=== PATIENT | female | born 1995 | race African-American/Black ===

== ENCOUNTER 2016-06-05 06:36 | Emergency (ER) | payer MEDICAID ==
[2016-06-05] MEDS ORDERED: IBUPROFEN 600 MG TABLET PO ONE (07:13)
[2016-06-05] MEDS ORDERED: DIPHENHYDRAMINE HCL 25 MG CAPSULE PO ONE (07:13)
[2016-06-05] MEDS ORDERED: PROCHLORPERAZINE MALEATE 10 MG TABLET PO ONE (07:13)
--- NOTE | 2016-06-05 07:15 | ER Document Report ---
ED Headache - General Chief Complaint: Head Injury Stated Complaint: FALL,HEADACHE Time seen by provider: 07:10 Mode of Arrival: Ambulatory Information source: Patient Notes: 21-year-old female presents to ED with 3 days of headache with dizziness since she hit the side of her head when she fell while "messing around" with her boyfriend. She states that she had a headache and dizziness for the past 3 days. He states she took naproxen the first day and Excedrin Migraine the second day and her head is still sore. TRAVEL OUTSIDE OF THE [place] IN LAST 30 DAYS: No - HPI Patient complains to provider of: Headache Onset: Other - 3 days Onset was: Other - She fell and hit her head Timing: Better Quality of pain: Other - Sore Severity: Moderate Pain Level: 3 Associated symptoms: Lightheaded, Photophobia Exacerbated by: Noise Similar symptoms previously: Yes Recently seen / treated by doctor: No - Related Data Allergies/Adverse Reactions: No Known Allergies Allergy (Verified 06/05/16 06:59) Past Medical History - General Information source: Patient - Social History Smoking Status: Never Smoker Cigarette use (# per day): No Chew tobacco use (# tins/day): No Smoking Education Provided: No Frequency of alcohol use: None Drug Abuse: None Lives with: Family Family History: Reviewed & Not Pertinent Patient has suicidal ideation: No Patient has homicidal ideation: No - Past Medical History Cardiac Medical History: Reports: None Pulmonary Medical History: Reports: Hx Asthma EENT Medical History: Reports: None Endocrine Medical History: Reports: None Renal/ Medical History: Reports: None Malignancy Medical History: Reports: None GI Medical History: Reports: None Musculoskeltal Medical History: Reports None Skin Medical History: Reports None Psychiatric Medical History: Reports: Hx Attention Deficit Hyperactivity Disorder Infectious Medical History: Reports: None Surgical Hx: Negative Past Surgical History: Reports: None - Immunizations Immunizations up to date: Yes Hx Diphtheria, Pertussis, Tetanus Vaccination: Yes Review of Systems - Review of Systems Constitutional: No symptoms reported EENT: No symptoms reported Cardiovascular: Dizziness Respiratory: No symptoms reported Gastrointestinal: No symptoms reported Genitourinary: No symptoms reported Female Genitourinary: No symptoms reported Musculoskeletal: No symptoms reported Skin: No symptoms reported Hematologic/Lymphatic: No symptoms reported Neurological/Psychological: Headaches -: Yes All other systems reviewed and negative Physical Exam - Vital signs Vitals: Temp Pulse Resp BP Pulse Ox 98.2 F 94 17 106/50 L 99 06/05/16 06:58 06/05/16 06:58 06/05/16 06:58 06/05/16 06:58 06/05/16 06:58 Interpretation: Normal - General General appearance: Appears well, Alert - HEENT Head: Normocephalic, Atraumatic Eyes: Normal Pupils: PERRL Ears: Normal External canal: Normal Tympanic membrane: Normal Nasal: Normal Mouth/Lips: Normal Mucous membranes: Normal Pharynx: Normal Neck: Normal - Respiratory Respiratory status: No respiratory distress Chest status: Nontender Breath sounds: Normal Chest palpation: Normal - Cardiovascular Rhythm: Regular Heart sounds: Normal auscultation Murmur: No - Abdominal Inspection: Normal Distension: No distension Bowel sounds: Normal Tenderness: Nontender Organomegaly: No organomegaly - Back Back: Normal, Nontender - Extremities General upper extremity: Normal inspection, Nontender, Normal color, Normal ROM , Normal temperature General lower extremity: Normal inspection, Nontender, Normal color, Normal ROM , Normal temperature, Normal weight bearing. No: Jose's sign - Neurological Neuro grossly intact: Yes Cognition: Normal Orientation: AAOx4 [place] Coma Scale Eye Opening: Spontaneous Adrien Coma Scale Verbal: Oriented Adrien Coma Scale Motor: Obeys Commands Adrien Coma Scale Total: 15 Speech: Normal Cranial nerves: Normal Cerebellar coordination: Normal Motor strength normal: LUE, RUE, LLE, RLE Additional motor exam normals: Equal facility manager Babinski reflex: Normal (flexor plantar) Sensory: Normal - Psychological Associated symptoms: Normal affect, Normal mood - Skin Skin Temperature: Warm Skin Moisture: Dry Skin Color: Normal Course - Vital Signs Vital signs: Temp Pulse Resp BP Pulse Ox 98.2 F 94 17 106/50 L 99 06/05/16 06:58 06/05/16 06:58 06/05/16 06:58 06/05/16 06:58 06/05/16 06:58 Discharge - Discharge Clinical Impression: Headache Qualifiers: Headache type: unspecified Headache chronicity pattern: acute headache Intractability: not intractable Qualified Code(s): R51 - Headache Condition: Stable Disposition: HOME, SELF-CARE Additional Instructions: HEADACHE: The physician does not feel that the headache you are experiencing has a serious underlying cause. Most headaches are due to emotional stress, with resultant muscle tension (tension headache). Occasionally, headaches are secondary to changes in the blood vessels of the scalp (vascular headache and migraine headache). Sometimes, a headache is the first symptom of another developing illness, such as a viral infection. You have no evidence of stroke, bleeding, meningitis, or other serious cause of your headache. The treatment of headaches varies with the severity and cause of the pain. Not all headaches need pain shots. In fact, there is evidence that using narcotics for headaches may make them worse in the long run. The physician will determine the therapy that's in your best interest. If you develop a fever, if the headache is different from any you've previously experienced, or if the headache progressively worsens, then call your physician at once or go to the emergency room. USE OF DIPHENHYDRAMINE: Diphenhydramine (Benadryl) is an antihistamine and has been recommended to help treat your headache and to prevent side effects of other medications used to treat headaches. The medication can be repeated four times daily. Age Elixir (12.5 mg/tsp) 25 mg pill adult 1-2 tabs Antihistamines may cause drowsiness, especially with the first dose. Do not operate machinery or drive while under the effects of the medication. Do not combine the medication with alcohol, or with any other medication without talking to your doctor. ANTINAUSEA MEDICATION: You have been given a medication to suppress nausea and vomiting. This type of medication can be given as a shot, pill, or suppository. It will usually last for many hours. Pills and shots usually last six to eight hours, suppositories last about 12 hours. For the typical illness, only one or two doses of the medication may be necessary. Mild lightheadedness may occur. This type of medicine can cause drowsiness. Do not drive or operate dangerous machinery while under its influence. Do not mix with alcohol. See your doctor at once if you have muscle spasms or tightness, or uncontrollable motions (particularly of the neck, mouth, or jaw). Persistent vomiting or severe lightheadedness should also be evaluated by the physician. COMPAZINE FOR HEADACHE: You have received therapy for headaches, using Compazine. This treatment is dramatically successful in relieving the headache in about 50 percent of cases. When it works, it provides a rapid method of eliminating the headache without resorting to narcotics (and the problems associated with them). Most patients still feel fully alert after the Compazine, but others may be slightly drowsy. It's best not to drive or work with machinery for six to eight hours. Do not take alcohol or other medication unless you discuss it with the doctor. If you develop tightness and spasms in your muscles, especially the neck and tongue, you should return. This is a side effect which can be treated. Ibuprofen Ibuprofen is an excellent, safe drug for pain control. In addition, it has potent antiinflammatory effects which are beneficial, especially in the treatment of injuries, arthritis, or tendonitis. It's best to take ibuprofen with food. Persons with ulcer disease or allergy to aspirin should notify their physician of this before taking ibuprofen. Take the medication exactly as prescribed. Don't take additional doses unless instructed to do so by your doctor. If you develop wheezing, shortness of breath, hives, faintness, stomach pain, vomiting, or dark black stools, return for re-evaluation at once. FOLLOW-UP CARE: If you have been referred to a physician for follow-up care, call the physician s office for an appointment as you were instructed or within the next two days. If you experience worsening or a significant change in your symptoms, notify the physician immediately or return to the Emergency Department at any time for re-evaluation. Prescriptions: Prochlorperazine Maleate [Compazine 10 mg Tablet] 10 mg PO ASDIR PRN #10 tablet PRN Reason: Forms: Return to Work
[2016-06-05 07:45] VITALS: BP 110/55
== END 2016-06-05 07:39 | disposition home or self-care (01) ==
LOC: ER 06:36
DX: R51 Headache (principal); R42 Dizziness and giddiness; H53.149 Visual discomfort, unspecified; W19.XXXA Unspecified fall, initial encounter; J45.909 Unspecified asthma, uncomplicated
CPT/HCPCS: 99283; J3490 ×2; S0183

== ENCOUNTER 2018-08-08 19:46 | Emergency (ER) | payer MEDICAID ==
[2018-08-08 19:56] VITALS: BP 100/56
[2018-08-08] MEDS ORDERED: METOCLOPRAMIDE HCL INJ/PF 10 MG/2 ML SDV IV ONE (20:19)
[2018-08-08] MEDS ORDERED: NORMAL SALINE 1000 ML 1,000 ML IV ONE (20:20)
--- NOTE | 2018-08-08 20:21 | ER Document Report ---
ED Medical Screen (RME) - General Chief Complaint: Nausea/Vomiting Stated Complaint: VOMITING Time Seen by Provider: 08/08/18 20:18 Primary Care Provider: ROBB RAMÍREZ MD [Primary Care Provider] - Follow up as needed Mode of Arrival: Ambulatory Information source: Patient Notes: Patient is an otherwise healthy 23-year-old female who presents to the emergency department with a chief complaint of nausea with vomiting. Patient reports symptoms started this morning. Patient denies any diarrhea. Patient reports her significant other woke up with similar symptoms. Patient reports she is approximately 19 weeks . Patient denies any vaginal bleeding or abnormal discharge. Patient does report mild low abdominal cramping. Exam: Patient alert, oriented with no acute distress noted. Abdomen gravid, soft, nontender. I have greeted and performed a rapid initial assessment of this patient. A comprehensive ED assessment and evaluation of the patient, analysis of test results and completion of the medical decision making process will be conducted by additional ED providers. Dictation of this chart was performed using voice recognition software; therefore, there may be some unintended grammatical errors. TRAVEL OUTSIDE OF THE [place] IN LAST 30 DAYS: No - Related Data Allergies/Adverse Reactions: No Known Allergies Allergy (Verified 06/05/16 06:59) Past Medical History Pulmonary Medical History: Reports: Hx Asthma Renal/ Medical History: Denies: Hx Peritoneal Dialysis Psychiatric Medical History: Reports: Hx Attention Deficit Hyperactivity Disorder - Immunizations Immunizations up to date: Yes Hx Diphtheria, Pertussis, Tetanus Vaccination: Yes Physical Exam - Vital signs Vitals: Temp Pulse Resp BP Pulse Ox 98.6 F 103 H 17 100/56 L 95 08/08/18 19:53 08/08/18 19:53 08/08/18 19:53 08/08/18 19:53 08/08/18 19:53 Course - Vital Signs Vital signs: Temp Pulse Resp BP Pulse Ox 98.6 F 103 H 17 100/56 L 95 08/08/18 19:53 08/08/18 19:53 08/08/18 19:53 08/08/18 19:53 08/08/18 19:53 Doctor's Discharge - Discharge Referrals: ROBB RAMÍREZ MD [Primary Care Provider] - Follow up as needed
[2018-08-08 21:14] LABS: ABSOLUTE MONOCYTES (AUTO) 0.3 10^3/uL (0.1-1.4); ABSOLUTE NEUT (AUTO) 12.9 10^3/uL (1.7-8.2); BASOPHILS % (AUTO) 0.2 % (0-2); HEMATOCRIT 38.9 % (36.0-47.0); HEMOGLOBIN 13.7 g/dL (12.0-15.5); LYMPHOCYTES % (AUTO) 7.2 % (13-45); MEAN CORPUSCULAR HEMOGLOBIN 31.6 pg (27.0-33.4); MEAN CORPUSCULAR HGB CONC 35.3 g/dL (32.0-36.0); MEAN CORPUSCULAR VOLUME 90 fl (80-97); PLATELET COUNT 257 10^3/uL (150-450); RED BLOOD COUNT 4.34 10^6/uL (3.72-5.28); RED CELL DISTRIBUTION WIDTH 13.1 % (11.5-14.0); SEGMENTED NEUTROPHILS % (AUTO) 90.6 % (42-78); TOTAL CELLS COUNTED % (AUTO) 100 %; WHITE BLOOD COUNT 14.2 10^3/uL (4.0-10.5)
[2018-08-08 21:25] LABS: APPEARANCE,URINE CLEAR; BILIRUBIN,URINE NEGATIVE (NEGATIVE); COLOR,URINE YELLOW; GLUCOSE, URINE NEGATIVE (NEGATIVE); KETONES,URINE 80 mg/dL (NEGATIVE); LEUKOCYTE ESTERASE,URINE NEGATIVE (NEGATIVE); NITRITE,URINE NEGATIVE (NEGATIVE); PROTEIN,URINE NEGATIVE (NEGATIVE); URINE SPECIFIC GRAVITY 1.021
[2018-08-08 21:28] LABS: ALANINE AMINOTRANSFERASE 21 U/L (9-52); ALKALINE PHOSPHATASE 105 U/L (38-126); ANION GAP 11 (5-19); ASPARTATE AMINO TRANSFERASE 24 U/L (14-36); BILIRUBIN,DIRECT 0.2 mg/dL (0.0-0.4); BILIRUBIN,TOTAL 0.8 mg/dL (0.2-1.3); BLOOD UREA NITROGEN 7 mg/dL (7-20); CALCIUM 9.6 mg/dL (8.4-10.2); CARBON DIOXIDE 20 mmol/L (22-30); CHLORIDE 102 mmol/L (98-107); GLUCOSE 94 mg/dL (75-110); POTASSIUM 4.1 mmol/L (3.6-5.0); SODIUM 133.3 mmol/L (137-145); TOTAL PROTEIN 7.3 g/dL (6.3-8.2)
== END 2018-08-08 22:10 | disposition left against medical advice (07) ==
LOC: ER 19:46
DX: O21.9 Vomiting of pregnancy, unspecified (principal); O99.519 Diseases of the respiratory system complicating pregnancy, unspecified trimester; J45.909 Unspecified asthma, uncomplicated; Z3A.00 Weeks of gestation of pregnancy not specified; O26.899 Other specified pregnancy related conditions, unspecified trimester; R10.30 Lower abdominal pain, unspecified; Z53.20 Procedure and treatment not carried out because of patient's decision for unspecified reasons
CPT/HCPCS: 99281; 96361; 96374; 36415; 85025; 80053; 81001; J2765; J7030

== ENCOUNTER 2019-01-08 03:54 | Inpatient (IN) | payer MEDICAID ==
[2019-01-08] MEDS ORDERED: OXYTOCIN 10 UNIT/ML VIAL ONE ×2 (04:21→07:31)
[2019-01-08] MEDS ORDERED: LIDOCAINE 1% INJ-PF (10 MG/ML) 30 ML SDV ONE ×2 (04:21→07:31)
[2019-01-08] MEDS ORDERED: MISOPROSTOL 0.2 MG TABLET ONE ×2 (04:21→07:31)
[2019-01-08] MEDS ORDERED: OXYTOCIN/NORMAL SALINE 20 UNIT/1,000 ML RTUINJ ONE ×2 (04:22→07:31)
[2019-01-08 04:32] LABS: APPEARANCE,URINE CLEAR; BILIRUBIN,URINE NEGATIVE (NEGATIVE); COLOR,URINE YELLOW; GLUCOSE, URINE NEGATIVE (NEGATIVE); KETONES,URINE NEGATIVE (NEGATIVE); LEUKOCYTE ESTERASE,URINE NEGATIVE (NEGATIVE); NITRITE,URINE NEGATIVE (NEGATIVE); PROTEIN,URINE NEGATIVE (NEGATIVE); URINE SPECIFIC GRAVITY 1.006; UROBILINOGEN,URINE NEGATIVE mg/dL (<2.0)
[2019-01-08 04:49] LABS: URINE AMPHETAMINES SCREEN NEGATIVE; URINE BARBITURATES SCREEN NEGATIVE; URINE BENZODIAZEPINES SCREEN NEGATIVE; URINE COCAINE SCREEN NEGATIVE; URINE MARIJUANA (THC) SCREEN NEGATIVE; URINE METHADONE SCREEN NEGATIVE; URINE PHENCYCLIDINE SCREEN NEGATIVE
[2019-01-08] MEDS ORDERED: RINGERS SOLUTION,LACTATED 1,000 ML IV PRN (07:16)
[2019-01-08 07:45] LABS: ABSOLUTE EOSINOPHILS # (AUTO) 0.1 10^3/uL (0.0-0.6); ABSOLUTE LYMPHOCYTES (AUTO) 2.9 10^3/uL (0.5-4.7); ABSOLUTE MONOCYTES (AUTO) 0.7 10^3/uL (0.1-1.4); ABSOLUTE NEUT (AUTO) 8.6 10^3/uL (1.7-8.2); BASOPHILS % (AUTO) 0.3 % (0-2); EOSINOPHILS % (AUTO) 0.7 % (0-6); HEMATOCRIT 33.8 % (36.0-47.0); LYMPHOCYTES % (AUTO) 23.5 % (13-45); MEAN CORPUSCULAR HEMOGLOBIN 26.6 pg (27.0-33.4); MEAN CORPUSCULAR HGB CONC 32.6 g/dL (32.0-36.0); MEAN CORPUSCULAR VOLUME 82 fl (80-97); MONOCYTES % (AUTO) 5.7 % (3-13); PLATELET COUNT 335 10^3/uL (150-450); RED BLOOD COUNT 4.14 10^6/uL (3.72-5.28); RED CELL DISTRIBUTION WIDTH 15.3 % (11.5-14.0); SEGMENTED NEUTROPHILS % (AUTO) 69.8 % (42-78); TOTAL CELLS COUNTED % (AUTO) 100 %; WHITE BLOOD COUNT 12.2 10^3/uL (4.0-10.5)
--- NOTE | 2019-01-08 07:47 | Admission Physical ---
Datetime Report Generated by CPN: 01/08/2019 07:47 CURRENT ADMISSION Chief Complaint: Uterine Contractions Indication for Induction: Not Applicable Admit Impression : Active Labor; Ruptured Membranes Admit Plan: Admit to Unit ALLERGIES Medication Allergies: No Medication Allergies: No Known Allergies (06/05/2016) Latex: No Latex Allergies OBSTETRICAL HISTORY EDC: 01/05/2019 00:00 : 2 Para: 1 Livin Gestational Diabetes: No Rh Sensitization: No Incompetent Cervix: No EDY: No Infertility: No ART Treatment: No Uterine Anomaly: No IUGR: No Hx Previous C/S: No Macrosomia: No Hx Loss/Stillborn: No PIH: No Hx : No Placenta Previa/Abruption: No Depression/PP Depression: No PTL/PROM: No Post Hemorrhage: No Current Procedures: Ultrasound SEE RECORDS Alcohol: No Marijuana : No Cocaine: No Other Illicit Drugs: No Cigarettes: Never Smoker. 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 Heart Disease: No Hosp/Surgery: No Autoimmune Disorder: No Anesthetic Complications: No Kidney Disease: No Abnormal Pap Smear: No Neuro/Epilepsy: No Psychiatric Disorders: No Other Medical Diseases: No Hepatitis/Liver Disease: No Significant Family History: No Varicosities/Phlebitis: No Trauma/Violence : No Thyroid Dysfunction: No INFECTIOUS HISTORY Gonorrhea: No Genital Herpes: No Chlamydia: No Tuberculosis: No Syphilis: No Hepatitis: No HIV/AIDS Exposure: No Rash or Viral Illness: No HPV: No PHYSICAL EXAM General: Normal HEENT: Normal Neurologic: Normal Thyroid: Normal Heart: Normal Lungs: Normal Breast: Deferred Back: Normal Abdomen: Normal Genitourinary Exam: Normal Extremities: Normal DTRs: Normal Pelvic Type: Adequate Vital Signs: Reviewed VAGINAL EXAM Dilatation: 7 Effacement: 90 Station: -1 MEMBRANES Pooling: Positive Membranes: Ruptured FETUS A EGA: 40.3 Monitoring: External US FHR- Baseline: 130 Variability: Absent - Undetectable FHR Category: Category I Presentation: Vertex Admit Comment: Admit for labor PLANS FOR LABOR AND DELIVERY Labor and Delivery: None Pain Management: Medications; Epidural Feeding Preference: Breast INFORMED CONSENT Signature: with User ID: [email or web address]
[2019-01-08] MEDS ORDERED: ZOLPIDEM TARTRATE 5 MG TABLET PO PRN (08:56)
[2019-01-08] MEDS ORDERED: DIBUCAINE 1% OINTMENT 56 GM TP PRN (08:56)
[2019-01-08] MEDS ORDERED: OXYTOCIN/NORMAL SALINE 20 UNIT/1,000 ML RTUINJ IV PRN (08:56)
[2019-01-08] MEDS ORDERED: BENZOCAINE/MENTHOL AEROSOL SPRAY 56 ML TOP PRN (08:56)
[2019-01-08] MEDS ORDERED: ACETAMINOPHEN WITH CODEINE #3 TABLET PO PRN (08:56)
[2019-01-08] MEDS ORDERED: MEASLES,MUMPS&RUBELLA VACC/PF 0.5 ML VIAL SUBCUT PRN (08:56)
[2019-01-08] MEDS ORDERED: DIPH/PERTUSS(ACELL)/TETANUS VAC/PF 0.5 ML SYR (>=10YO) IM PRN (08:56)
[2019-01-08] MEDS ORDERED: ACETAMINOPHEN WITH CODEINE #3 TABLET ONE (09:01)
[2019-01-08] MEDS ORDERED: IBUPROFEN 800 MG TABLET ONE (09:35)
[2019-01-08] MEDS ORDERED: AMPICILLIN SOD/SULBACTAM 3 GM VIAL ONE (10:38)
[2019-01-08] MEDS: DOCUSATE SODIUM 100 MG CAPSULE PO SCH ×2 (11:21→18:29)
[2019-01-08] MEDS: FERROUS SULFATE 325 MG TABLET PO SCH ×2 (11:21→18:29)
[2019-01-08] MEDS: SENNOSIDES/DOCUSATE 8.6-50 MG 1 EACH TABLET PO SCH (11:22)
[2019-01-08] MEDS: PRENATAL VITAMIN W DHA CAPSULE PO SCH (11:22)
[2019-01-08] MEDS: IBUPROFEN 800 MG TABLET PO SCH ×2 (16:00→21:19)
[2019-01-08] MEDS: ACETAMINOPHEN WITH CODEINE #3 TABLET PO PRN (16:02)
--- NOTE | 2019-01-08 16:49 | Delivery Summary ---
Del Sum A-C Datetime Report Generated by CPN: 01/08/2019 16:48 DELIVERY PERSONNEL DELIVERY PERSONNEL: [id number] Delivery Doctor:: Ninfa Pina MD Nurse Systems Engineering Manager Certified:: Tran Dickerson CNM Labor and Delivery Nurse:: Harpreet Ly RNsewer connector Nurse:: LESLIE Clay Nursery Nurse:: Chad Pena RN MATERNAL INFORMATION Delivery Anesthesia: None Medications After Delivery: Pitocin 10 Units IM; Cytotec 1000mcg Per Rectum/Vagina Meds After Delivery Comment: Cytotec 200 mcg po amd Cytotec 800 mcg given Delivery QBL: 200 Delivery QBL Comment: 200 Maternal Complications: Precipitous Labor (<3hrs) Provider Comments: Complete +4 upon entering room, pt screaming and pushing intermittently uncordinated. Pt directed to relax legs and push multiple times as she was fighting it. Delivery of head was progressing slowly, Dr. Pina in for suspected shoulder dystocia, pt head lowered to flat. Head delivered, then shoulders delivered after 1m 30sec with Martín, and suprapubic pressure. Infant to maternal abd, cord clamped immediately and cut per RN, handed off to Nursery team for NRP. Placenta delivered spontaneously via [place]. IV lost during delivery, Pitocin given IM, cytotec 200mcg PO and 300mcg rectal. Bleeding stabilized, QBL 200. 5.8. Mother and stable. LABOR SUMMARY EDC: 01/05/2019 00:00 No. Babies in Womb: 1 Attempted: No Labor Anesthesia: None LABOR INFORMATION Reason for Induction: Not Applicable Onset of Labor: 01/08/2019 06:36 Complete Dilatation: 01/08/2019 07:55 Oxytocin: N/A Group B Beta Strep: NEG Antibiotics # of Doses: 0 Steroids Given: None Reason Steroids Not Administered: Not Applicable MEMBRANES Membranes Rupture Method: Spontaneous Rupture of Membranes: 01/08/2019 06:34 Length of Rupture (hr): 1.62 Amniotic Fluid Color: Clear Amniotic Fluid Amount: Small Amniotic Fluid Odor: Normal STAGES OF LABOR Stage 1 hr: 1 Stage 1 min: 19 Stage 2 hr: 0 Stage 2 min: 16 Stage 3 hr: 0 Stage 3 min: 4 Total Time in Labor hr: 1 Total Time in Labor min: 39 VAGINAL DELIVERY Episiotomy: None Laceration #1: Perineal Laceration Extension #1: First Degree Laceration Repair: Yes Laceration Repair Note: 1 interrupted stitch with 3.0 chromic suture Sponge Count Correct: N/A Sharps Count Correct: N/A CSECTION DELIVERY Primary Indication: N/A Secondary Indication: N/A CSection Incidence: N/A Labor: N/A Elective: N/A CSection Incision: N/A BABY A INFORMATION Delivery Date/Time: 01/08/2019 08:11 Method of Delivery: Vaginal Born in Route : No : N/A Forceps: N/A Vacuum Extraction: N/A (Annotations: Data stored by [facility] on behalf of user) Shoulder Dystocia : Yes SHOULDER DYSTOCIA BABY A Delivery of Head: 01/08/2019 08:10 Time Head to Delivery : 1.0 1st Intervention to Resolve: Gentle Attempt at Traction, Assisted by Maternal Expulsive Efforts 2nd Intervention to Resolve: McRobert's Maneuver 3rd Intervention to Resolve: Suprapubic Pressure Verify NO Fundal Pressure: No Fundal Pressure Applied Arm Under Symphisis at Del: Right PRESENTATION/POSITION BABY A Presentation: Cephalic Cephalic Presentation: Vertex Vertex Position: Right Occipital Anterior Breech Presentation: N/A PLACENTA INFORMATION BABY A Placenta Delivery Time : 01/08/2019 08:15 Placenta Method of Delivery: Spontaneous Placenta Status: Delivered SCORES BABY A Heart Rate 1 min: >100 bpm Resp Effort 1 min: Slow, Irregular Reflex Irritability 1 min: Grimace Muscle Tone 1 min: Some Flexion of Extremities Color 1 min: Blue/Pale SCORE 1 MIN: 5 Heart Rate 5 min: >100 bpm Resp Effort 5 min: Good Cry Reflex Irritability 5 min: Cough or Sneeze or Pulls Away Muscle Tone 5 min: Some Flexion of Extremities Color 5 min: Body [place], Extremities Blue (Annotations: Data stored by [facility] on behalf of user) SCORE 5 MIN: 8 INFORMATION BABY A Gestational Age at Delivery: 40.3 Gestational Status: Full Term- 39- 40.6 Weeks Infant Outcome : Liveborn Condition : Stable Infant Sex: Female IDENTIFICATION BABY A Verification Date/Time: 01/08/2019 08:45 ID Band Number: [id number] Mother's Name Verified: Yes Infant RN Verifying Infant: SCamp,RN Additional Verifying Personnel: TMartin,RN WEIGHT/LENGTH BABY A Infant Birthweight (gm): 4110 Infant Weight (lb): 9 Weight (oz): 1 Length (in): 21.00 Infant Length (cm): 53.34 CORD INFORMATION BABY A No. Cord Vessels: 3 Nuchal Cord : N/A Cord Blood Taken: Yes-For Eval (Mom's Blood Type - or O+) Suction: None ASSESSMENT BABY A Complications: None Physical Findings at Delivery: Other Physical Findings- Other: see nursery record for assessment Infant Respirations: Tachypnea Skin to Skin: No Oil Burner Installer/ALS Called : No Infant Care By: Wen Pena RN Transferred To: Nursery BABY B INFORMATION : N/A SIGNATURES Assignment: Ninfa Pina MD Signature: with User ID: [email or web address] : with User ID: [email or web address] : I was personally available for consultation and serving as supervising physician for the MLP.
[2019-01-08] MEDS ORDERED: AMPICILLIN SOD/SULBACTAM 3 GM VIAL IV SCH (18:00)
[2019-01-08] MEDS: AMPICILLIN SODIUM/SULBACTAM NA 3 GM in NORMAL SALINE 100 ML IV SCH ×2 (18:29→23:50)
[2019-01-09] MEDS: ACETAMINOPHEN WITH CODEINE #3 TABLET PO PRN (00:55)
[2019-01-09] MEDS: IBUPROFEN 800 MG TABLET PO SCH ×3 (06:33→21:32)
[2019-01-09] MEDS: AMPICILLIN SODIUM/SULBACTAM NA 3 GM in NORMAL SALINE 100 ML IV SCH (06:34)
[2019-01-09 08:04] LABS: HEMATOCRIT 33.4 % (36.0-47.0); HEMOGLOBIN 10.8 g/dL (12.0-15.5); MEAN CORPUSCULAR HEMOGLOBIN 26.2 pg (27.0-33.4); MEAN CORPUSCULAR HGB CONC 32.2 g/dL (32.0-36.0); MEAN CORPUSCULAR VOLUME 81 fl (80-97); PLATELET COUNT 305 10^3/uL (150-450); RED BLOOD COUNT 4.11 10^6/uL (3.72-5.28); RED CELL DISTRIBUTION WIDTH 15.7 % (11.5-14.0); WHITE BLOOD COUNT 13.9 10^3/uL (4.0-10.5)
--- NOTE | 2019-01-09 08:44 | PDOC PROGRESS REPORT ---
Subjective-OB Progress Note for:: 01/09/19 - PP Day #1, doing well, no complaints, O+, Rubella immune, Maternal Temp noted while in labor, s/p Ancef, , Physical Exam (OB) Vital Signs: Temp Pulse Resp BP Pulse Ox 97.6 F 65 18 96/48 L 99 01/09/19 00:54 01/08/19 20:53 01/08/19 20:53 01/08/19 20:53 01/08/19 20:53 Intake & Output 01/08/19 01/09/19 01/10/19 06:59 06:59 06:59 Intake Total 1650 Balance 1650 Weight 76.8 kg - General General Appearance: Appears well, Alert In distress: None - PIH/Pre-Eclampsia Headache: Absent Epigastric Pain: No Visual Changes: No - Lochia Lochia Amount: Small 10-25 ml Lochia Color: Rubra/Red - Abdomen Description: Soft, Round Hernia Present: No Fundal Description: Firm, Midline Fundal Height: u/u - u/2 - Respiratory Respiratory Status: No respiratory distress - Abdominal Inspection: Normal Distension: No distension - Genitourinary Genitourinary Note: voiding - Extremities Upper extremity: Normal inspection Lower extremities: Normal inspection - Neurological Cognition: Normal Orientation: AAOx4 - Psychological Associated symptoms: Normal affect, Normal mood - Skin Skin Temperature: Warm Skin Moisture: Dry Objective-Diagnostic Laboratory: 01/09/19 07:29 01/09/19 07:29 WBC 13.9 H RBC 4.11 Hgb 10.8 L Hct 33.4 L MCV 81 MCH 26.2 L MCHC 32.2 RDW 15.7 H Plt Count 305 Assessment and Plan(PN) - Assessment and Plan (1) Normal course Is this a current diagnosis for this admission?: Yes (2) fever, current hospitalization Is this a current diagnosis for this admission?: Yes (3) Shoulder dystocia, delivered Is this a current diagnosis for this admission?: Yes (4) Vaginal delivery Is this a current diagnosis for this admission?: Yes - Time Spent with Patient Time with patient: Less than 15 minutes Medications reviewed and adjusted accordingly: Yes - Disposition Anticipated Discharge: Home Within: within 24 hours
[2019-01-09] MEDS: FERROUS SULFATE 325 MG TABLET PO SCH ×2 (10:33→17:09)
[2019-01-09] MEDS: SENNOSIDES/DOCUSATE 8.6-50 MG 1 EACH TABLET PO SCH (10:33)
[2019-01-09] MEDS: PRENATAL VITAMIN W DHA CAPSULE PO SCH (10:33)
[2019-01-09] MEDS: DOCUSATE SODIUM 100 MG CAPSULE PO SCH ×2 (10:33→17:09)
[2019-01-10] MEDS: IBUPROFEN 800 MG TABLET PO SCH (05:06)
--- NOTE | 2019-01-10 09:53 | PDOC DISCHARGE SUMMARY ---
Final Diagnosis Discharge Date: 01/10/19 - PP Day #2, doing well, denies fever, chills, malaise, , O+, Rubella Immune - Final Diagnosis (1) Normal course Is this a current diagnosis for this admission?: Yes (2) fever, current hospitalization Is this a current diagnosis for this admission?: Yes (3) Shoulder dystocia, delivered Is this a current diagnosis for this admission?: Yes (4) Vaginal delivery Is this a current diagnosis for this admission?: Yes Discharge Data - Discharge Medication Prescriptions: Ibuprofen [Motrin 800 mg Tablet] 800 mg PO Q8 #60 tablet Home Medications: Vits96/Iron Fum/Folic [ Tablet] 1 each PO DAILY 08/08/18 Ibuprofen [Motrin 800 mg Tablet] 800 mg PO Q8 #60 tablet 01/10/19 Reason(s) for Admission: Onset of Labor Procedure(s) Note: Tx'd for fever during labor Intrapartum Procedure(s): Spontaneous Vaginal Delivery Complication(s): Laceration-Perineal Laceration-Degree: 1st - Diagnosis Test Laboratory: Temp Pulse Resp BP Pulse Ox 97.5 F 60 16 115/55 L 99 01/09/19 19:36 01/09/19 19:36 01/09/19 19:36 01/09/19 19:36 01/09/19 19:36 01/08/19 01/08/19 01/09/19 04:09 07:34 07:29 RBC 4.14 4.11 Hgb 11.0 L 10.8 L Hct 33.8 L 33.4 L Urine Opiates Screen NEGATIVE - Discharge information/Instructions Discharge Activity: Activity As Tolerated, No Lifting Over 10 Pounds, Pelvic Rest Discharge Diet: As Tolerated, Regular Disposition: HOME, SELF-CARE Follow up with: [facility] in: 4, Weeks
[2019-01-10] MEDS: PRENATAL VITAMIN W DHA CAPSULE PO SCH (11:24)
[2019-01-10] MEDS: DOCUSATE SODIUM 100 MG CAPSULE PO SCH (11:24)
[2019-01-10] MEDS: FERROUS SULFATE 325 MG TABLET PO SCH (11:24)
[2019-01-10] MEDS: SENNOSIDES/DOCUSATE 8.6-50 MG 1 EACH TABLET PO SCH (11:24)
[2019-01-10 12:16] VITALS: BP 110/41
== END 2019-01-10 15:05 | disposition home or self-care (01) | DRG 806 ==
LOC: LC 03:54 → LR 06:23 → 2S 11:50
PROVIDERS: ADMIT Student in an Organized Health Care Education/Training Program; ATTEND Student in an Organized Health Care Education/Training Program
PROC: 10E0XZZ Delivery of Products of Conception, External Approach (ICD-10-PCS; principal; 2019-01-08)
PROC: 0HQ9XZZ Repair Perineum Skin, External Approach (ICD-10-PCS; 2019-01-08)
DX: O62.3 Precipitate labor (principal); O86.4 Pyrexia of unknown origin following delivery; Z37.0 Single live birth; O32.2XX0 Maternal care for transverse and oblique lie, not applicable or unspecified; O70.0 First degree perineal laceration during delivery; Z3A.40 40 weeks gestation of pregnancy
CPT/HCPCS: 36415; 80307; 81005; 84112; 85025; 85027; 86592; 86850; 86900; 86901; 94760; J0295; J2590; J3490; J7050

== ENCOUNTER 2019-05-26 23:57 | Emergency (ER) | payer MEDICAID ==
--- NOTE | 2019-05-27 01:35 | ER Document Report ---
ED Cardiac - General Chief Complaint: Palpitations Stated Complaint: REPORTS RAPID HEART RATE Time Seen by Provider: 05/27/19 01:34 Primary Care Provider: ELVIS SANTANA MD [Primary Care Provider] - Follow up as needed TRAVEL OUTSIDE OF THE [place] IN LAST 30 DAYS: No - Related Data Allergies/Adverse Reactions: No Known Allergies Allergy (Verified 06/05/16 06:59) Past Medical History - Social History Smoking Status: Never Smoker Frequency of alcohol use: None Drug Abuse: None Family History: Reviewed & Not Pertinent Patient has suicidal ideation: No Patient has homicidal ideation: No Pulmonary Medical History: Reports: Hx Asthma Renal/ Medical History: Denies: Hx Peritoneal Dialysis Psychiatric Medical History: Reports: Hx Attention Deficit Hyperactivity Disorder - Immunizations Immunizations up to date: Yes Hx Diphtheria, Pertussis, Tetanus Vaccination: Yes Physical Exam - Vital signs Vitals: Temp Pulse Resp BP Pulse Ox 97.7 F 74 15 106/60 98 05/27/19 00:16 05/27/19 00:16 05/27/19 00:16 05/27/19 00:16 05/27/19 00:16 Course - Re-evaluation Re-evalutation: 05/27/19 03:54 Patient resting comfortably normal sinus rhythm rate of 72 no return of palpitations. Denies any chest pain. - Vital Signs Vital signs: Temp Pulse Resp BP Pulse Ox 97.7 F 74 15 106/60 100 05/27/19 00:16 05/27/19 00:16 05/27/19 01:00 05/27/19 00:16 05/27/19 01:00 05/27/19 04:22 Patient's urine is cloudy and shows evidence for urinary tract infection. When asked patient if she had symptoms of UTI she does mention that there is no urinary burning noted. I explained the patient that we will put her on antibiotic at the treat that condition. - Laboratory Result Diagrams: 05/27/19 02:09 05/27/19 02:09 Laboratory results interpreted by me: 05/27/19 05/27/19 02:00 02:09 WBC 11.2 H Urine Ketones TRACE H Urine Nitrite POSITIVE H Urine Urobilinogen 4.0 H Ur Leukocyte Esterase TRACE H - EKG Interpretation by Me EKG shows normal: Sinus rhythm Rate: Normal Rhythm: NSR Additional EKG results interpreted by me: 05/27/19 01:53 Twelve-lead EKG 07: 35. Interpretation normal sinus rhythm rate of 65 normal intervals no acute process normal axis no acute ST-T wave changes. Discharge - Discharge Clinical Impression: Generalized anxiety disorder with panic attacks, Heart palpitations, Urinary tract infection Condition: Stable Disposition: HOME, SELF-CARE Instructions: Urinary Tract Infection ([facility]), Trimethoprim-Sulfa ([facility]) Additional Instructions: Recommend follow-up with the [facility] to allow you to learn coping skills and counseling regarding anxiety which causes your palpitations and panic attacks. No medications prescribed at this time. The physician feels that some of your health problems are being caused by anxiety. Anxiety affects your health in many ways. Anxiety alone can cause palpitations, sweats, chest pains, abdominal pains, shortness of breath, and headaches. It contributes to ulcer disease, high blood pressure, irritable bowel syndrome, and has been shown to cause flare-ups of many other diseases. Anxiety is not a simple disorder to treat. If the anxiety is due to recent life stresses, you may simply need time to "work through" the changes. If the anxiety is due to an underlying unhappiness with yourself or due to psychiatric disturbance, professional help will be needed. Your physician can refer you for further help if needed. Anti-anxiety medication is occasionally given if the stress is acute or if you are having trouble sleeping. Chronic or frequent use of these medications is not a good idea because the body becomes reliant on it, preventing you from dealing with life's normal stresses. Prescriptions: Sulfamethoxazole/Trimethoprim [Septra-Ds 800-160 mg Tablet] 1 tab PO BID 10 Days #20 tablet Forms: Return to Work Referrals: ELVIS SANTANA MD [Primary Care Provider] - Follow up as needed
[2019-05-27 02:24] LABS: ABSOLUTE EOSINOPHILS # (AUTO) 0.1 10^3/uL (0.0-0.6); ABSOLUTE LYMPHOCYTES (AUTO) 4.3 10^3/uL (0.5-4.7); ABSOLUTE MONOCYTES (AUTO) 0.6 10^3/uL (0.1-1.4); ABSOLUTE NEUT (AUTO) 6.1 10^3/uL (1.7-8.2); BASOPHILS % (AUTO) 0.2 % (0-2); HEMATOCRIT 43.3 % (36.0-47.0); HEMOGLOBIN 14.7 g/dL (12.0-15.5); LYMPHOCYTES % (AUTO) 38.3 % (13-45); MEAN CORPUSCULAR HEMOGLOBIN 30.4 pg (27.0-33.4); MEAN CORPUSCULAR HGB CONC 33.8 g/dL (32.0-36.0); MEAN CORPUSCULAR VOLUME 90 fl (80-97); MONOCYTES % (AUTO) 5.7 % (3-13); PLATELET COUNT 247 10^3/uL (150-450); RED BLOOD COUNT 4.82 10^6/uL (3.72-5.28); RED CELL DISTRIBUTION WIDTH 12.7 % (11.5-14.0); SEGMENTED NEUTROPHILS % (AUTO) 54.8 % (42-78); TOTAL CELLS COUNTED % (AUTO) 100 %; WHITE BLOOD COUNT 11.2 10^3/uL (4.0-10.5)
[2019-05-27 02:41] LABS: ALBUMIN 4.5 g/dL (3.5-5.0); ALKALINE PHOSPHATASE 80 U/L (38-126); ANION GAP 9 (5-19); ASPARTATE AMINO TRANSFERASE 25 U/L (14-36); BILIRUBIN,TOTAL 0.5 mg/dL (0.2-1.3); BLOOD UREA NITROGEN 12 mg/dL (7-20); CALCIUM 9.4 mg/dL (8.4-10.2); CARBON DIOXIDE 25 mmol/L (22-30); CHLORIDE 107 mmol/L (98-107); GLUCOSE 82 mg/dL (75-110); POTASSIUM 3.7 mmol/L (3.6-5.0); TOTAL PROTEIN 7.3 g/dL (6.3-8.2)
[2019-05-27 04:02] LABS: APPEARANCE,URINE CLOUDY; BILIRUBIN,URINE NEGATIVE (NEGATIVE); COLOR,URINE AMBER; GLUCOSE, URINE NEGATIVE (NEGATIVE); KETONES,URINE TRACE mg/dL (NEGATIVE); LEUKOCYTE ESTERASE,URINE TRACE (NEGATIVE); NITRITE,URINE POSITIVE (NEGATIVE); PROTEIN,URINE NEGATIVE (NEGATIVE); URINE SPECIFIC GRAVITY 1.026
[2019-05-27 04:50] VITALS: BP 101/66
--- NOTE | 2019-05-27 07:43 | EKG REPORT ---
SEVERITY:- NORMAL ECG - SINUS RHYTHM : Confirmed by: Manolo Carreon MD 27-May-2019 07:42:24
== END 2019-05-27 04:50 | disposition home or self-care (01) ==
LOC: ER 23:57
DX: F41.1 Generalized anxiety disorder (principal); F41.0 Panic disorder [episodic paroxysmal anxiety]; N39.0 Urinary tract infection, site not specified; R00.2 Palpitations; J45.909 Unspecified asthma, uncomplicated
CPT/HCPCS: 36415; 80053; 81001; 81025; 85025; 93005; 93010; 99285